=== PATIENT | female | born 1985 | race Caucasian/White ===

== ENCOUNTER 2022-07-19 03:34 | Emergency (ER) | payer BC, MEDICAID, SELFPAY ==
[2022-07-19 03:40] VITALS: BP 145/88; PULSE 101; RESP 18; TEMP 36.9; O2SAT 100; BMI 33.3
[2022-07-19 03:52] VITALS: BP 145/88; PULSE 96; RESP 17; O2SAT 100
--- NOTE | 2022-07-19 03:52 | XRR_ITS ---
PROCEDURE INFORMATION: Exam: XR Chest Exam date and time: 07/19/2022 4:10 AM Age: 36 years old Clinical indication: Pain; Other: Epigastric; Additional info: Epigastric pain TECHNIQUE: Imaging protocol: Radiologic exam of the chest. Views: 1 view. COMPARISON: No relevant prior studies available. FINDINGS: Lungs: Lungs are clear. Pleural spaces: There is no pleural effusion or pneumothorax. Heart/Mediastinum: Cardiomediastinal contours are unremarkable. Bones/joints: There is a healed fracture of the right clavicle. XR/XR chest 1V portable [id number] IMPRESSION: No acute findings.
--- NOTE | 2022-07-19 03:52 | ECG_ITS ---
[facility] Test Date: 2022-07-19 Pat Name: Yakelin Felix Department: Room: Gender: Female Senior Electrical Engineer: : 1985 Requested By: Tommie Feng Order Number: [id number] Ari MD: Juan Ray M.D. Measurements Intervals [place] Rate: 90 P: 25 SC: 138 QRS: 15 QRSD: 80 T: 43 QT: 353 QTc: 433 Interpretive Statements SINUS RHYTHM LOW QRS VOLTAGE IN PRECORDIAL LEADS [QRS DEFLECTION < 1.0 mV IN CHEST LEADS] No previous ECG available for comparison Electronically Signed On 07-19-2022 7:17:37 CDT by Juan Ray M.D. [id number]
[2022-07-19] MEDS: lidocaine 2% viscous 15 ML, aluminum-mag hydrox-simethicon 30 ML, sucralfate oral liq 1 GM PO (04:05)
--- NOTE | 2022-07-19 04:07 | USR_ITS ---
PROCEDURE INFORMATION: Exam: US Abdomen, Limited; Right Upper Quadrant Exam date and time: 07/19/2022 4:16 AM Age: 36 years old Clinical indication: Abdominal pain; Epigastric; Additional info: Epigastric, ruq pain TECHNIQUE: Imaging protocol: Real time ultrasound of the abdomen with image documentation. Limited exam focused on the right upper quadrant. COMPARISON: No relevant prior studies available. FINDINGS: Liver: The liver is unremarkable. Gallbladder: The gallbladder is distended. The wall is mildly diffusely thickened. There is no pericholecystic fluid. No gallstones are visible. Sonographic Horton sign is negative. Biliary ducts: The common bile duct is nondilated measuring 6 mm. Pancreas: The visible portion of the pancreas is unremarkable. The pancreas is largely obscured by overlying bowel gas. Right kidney: The right kidney is unremarkable. Portal venous: The main portal vein is patent. US/US gall bladder [id number] IMPRESSION: Equivocal findings for acute cholecystitis including gallbladder distension and wall thickening. There are no visible gallstones or sludge. Sonographic Horton sign is negative.
[2022-07-19 04:09] LABS: Basophils # 0.1 10^3/uL (0.0-0.1); Basophils % 0.7 %; Eosinophils % 0.3 %; Hematocrit 43.4 % (37.0-47.0); Lymphocytes # 4.2 10^3/uL (0.8-4.8); Lymphocytes % 28.1 %; Mean Corpuscular HGB Conc 32.3 g/dL (30.0-36.0); Mean Corpuscular Hemoglobin 26.1 pg (28.0-34.0); Mean Corpuscular Volume 80.8 fl (81-99); Mean Platelet Volume 11.9 fL (7.4-10.4); Monocytes % 6.7 %; Neutrophils # 9.61 10^3/uL (1.8-7.7); Nucleated Red Blood Cells % 0 %; Platelet Count 420 10^3/cmm (130-400); Red Blood Count 5.37 10^6/uL (4.1-5.3); Red Cell Distribution Width 16.3 % (12.1-15.1)
[2022-07-19] MEDS: ondansetron 2 mg/ML SDV 2 mL 4 MG IVP (04:11)
[2022-07-19] MEDS: morphine 4 mg/mL SDV 1 mL IVP (04:11)
[2022-07-19 04:22] LABS: D Dimer 0.71 ug/mIFEU (0-0.59)
[2022-07-19 04:26] LABS: Troponin(5th) Baseline 6 ng/L (0-10)
[2022-07-19 04:34] LABS: Alanine Aminotransferase 20 U/L (0-33); Albumin Level 4.3 g/dL (3.5-5.2); Alkaline Phosphatase 65 U/L (35-105); Anion Gap 19.4 (5-19); Aspartate Amino Transferase 34 U/L (0-32); Blood Urea Nitrogen 13 mg/dL (6-20); Calcium 9.8 mg/dL (8.5-10.5); Carbon Dioxide 22 mmol/L (22-29); Chloride 101 mmol/L (98-107); Glomerular Filtration Rate 80.3 mL/min (90-130); Glucose 87 mg/dL (65-115); Lipase 79 U/L (13-60); NT Pro B Type Natriuretic Pept 62 pg/mL (0-125); Osmolality Calculated 287 mOsm/kg (285-295); Potassium 3.4 mmol/L (3.5-5.1); Sodium 139 mmol/L (136-145); Total Bilirubin 0.3 mg/dL (0.15-1.2); Total Protein 7.3 g/dL (6.6-8.7)
[2022-07-19] MEDS: ketorolac 30 mg/mL INJ 15 MG IVP (04:50)
--- NOTE | 2022-07-19 04:58 | CTR_ITS ---
PROCEDURE INFORMATION: Exam: CTA Chest With Contrast Exam date and time: 07/19/2022 5:24 AM Age: 36 years old Clinical indication: Abdominal pain; Epigastric; Sternal or substernal pain; Prior surgery; Surgery type: Tubal; Additional info: Epigastric pain, elevated d dimer TECHNIQUE: Imaging protocol: Computed tomographic angiography of the chest with contrast. 3D rendering (Not supervised by radiologist): MIP and/or 3D reconstructed images were created by the technologist. Radiation optimization: All CT scans at this facility use at least one of these dose optimization techniques: automated exposure control; mA and/or kV adjustment per patient size (includes targeted exams where dose is matched to clinical indication); or iterative reconstruction. Contrast material: OMNI 350; Contrast volume: 100 ml; Contrast route: INTRAVENOUS (IV); REPORTING DATA: Count of CT and Cardiac NM exams in prior 12 months: This patient has received 0 known CTs and 0 known cardiac nuclear medicine studies in the 12 months prior to the current study. COMPARISON: CR (CHEST, ) 07/19/2022 4:10 AM RADIATION DOSE METRICS: Total DLP (mGy-cm): 1244.75 FINDINGS: Pulmonary arteries: The pulmonary arteries are adequately opacified for evaluation to the subsegmental level. There is no filling defect to suggest embolism. Aorta: The thoracic aorta is normal. There is no aneurysm or dissection. Lungs: Lungs are clear. Pleural spaces: There is no pleural effusion or pneumothorax. Heart: Heart size is normal. There is no pericardial effusion. Lymph nodes: There is no mediastinal or hilar lymphadenopathy. Bones/joints: Bones are unremarkable. Soft tissues: The extrathoracic soft tissues are unremarkable. PROCEDURE INFORMATION: Exam: CT Abdomen And Pelvis With Contrast Exam date and time: 07/19/2022 5:24 AM Age: 36 years old Clinical indication: Abdominal pain; Epigastric; Sternal or substernal pain; Prior surgery; Surgery type: Tubal; Additional info: Epigastric pain, elevated d dimer TECHNIQUE: Imaging protocol: Computed tomography of the abdomen and pelvis with contrast. Radiation optimization: All CT scans at this facility use at least one of these dose optimization techniques: automated exposure control; mA and/or kV adjustment per patient size (includes targeted exams where dose is matched to clinical indication); or iterative reconstruction. Contrast material: OMNI 350; Contrast volume: 100 ml; Contrast route: INTRAVENOUS (IV); REPORTING DATA: Count of CT and Cardiac NM exams in prior 12 months: This patient has received 0 known CTs and 0 known cardiac nuclear medicine studies in the 12 months prior to the current study. COMPARISON: US gall bladder [id number] 07/19/2022 4:16 AM RADIATION DOSE METRICS: Total DLP (mGy-cm): 1244.75 FINDINGS: Liver: The liver is normal. Gallbladder and bile ducts: The gallbladder is distended. There is pericholecystic edema. No calcified stones are seen. There is no intrahepatic or extrahepatic bile duct dilation. Pancreas: The pancreas is unremarkable. Spleen: The spleen is unremarkable. Adrenal glands: The adrenal glands are unremarkable. Kidneys and ureters: The right kidney and ureter are unremarkable. There is multifocal cortical scarring at the left upper pole. There is a nonobstructive 2 mm stone in the left kidney. No hydronephrosis or ureteral dilation. There is a circumscribed 6 mm hypodense lesion in the left kidney which is too small to characterize but likely benign. Stomach and bowel: The stomach is unremarkable. The jejunum is mildly thickened but there is no perienteric edema. This finding likely represents physiologic muscular contraction. There is no small bowel dilation. The colon is diffusely decompressed. No sign of colitis. Appendix: The appendix is normal. Intraperitoneal space: There is no free air or significant intraperitoneal free fluid. Vasculature: There is mild aortic atherosclerotic disease. The portal, splenic and superior mesenteric veins are patent. Lymph nodes: There is no lymphadenopathy in the retroperitoneum, mesentery, pelvis or inguinal regions. Urinary bladder: The urinary bladder is unremarkable. Reproductive: The uterus is unremarkable. There is no adnexal mass or large cyst. Bones/joints: There is mild degenerative disease in the lumbar spine. Central disc protrusion at L4-L5 produces severe spinal stenosis. Soft tissues: The abdominal wall is intact. CT/CT angio chest w abd pel w con IMPRESSION: No pulmonary embolism. IMPRESSION: 1. Suggestive findings of acute cholecystitis. There is gallbladder distension and pericholecystic edema without visible stones. 2. L4-L5 disc protrusion with severe spinal stenosis. 3. Cortical scarring and nonobstructive stone in the left kidney.
--- NOTE | 2022-07-19 04:59 | ED_ITS ---
HPI - Chest Pain General: Chief Complaint: Chest Pain Stated Complaint: CP Time Seen by Provider: 07/19/22 03:51 Source: patient History of Present Illness: 36-year-old female with epigastric/right upper quadrant pain that radiates into her back. It woke her up around 1 AM. She has vomited twice. She felt mildly better after vomiting, but still is in si gnificant pain. She has had episodes like this before but this has been the most severe. She had an EGD in [facility] last week showing a hiatal hernia and some incomplete gastric emptying. No imaging has been done of the belly. She says that her chest x-ray was normal the last time it was taken. MD complaint: other Pertinent past history: other Onset (ago): hour(s) Timing of current episode: constant Prior episodes: Yes Onset: during rest and awoke with symptoms Pain location: epigastric Pain radiation: back Severity: moderate Associated symptoms: Reports abdominal pain, diaphoresis, dyspnea, nausea and vomiting; Deny fever(s) Treatment prior to arrival: none Review of Systems Const: Reports: diaphoresis; Denies: fever(s) Card: Reports: chest pain Resp: Reports: dyspnea GI: Reports: abdominal pain, nausea and vomiting : Denies: flank pain Musc: Reports: back pain Skin/Breast: Denies: rash Neuro: Denies: headache(s) Physical Exam 2 Const: COMMON NORMALS: no acute distress GENERAL APPEARANCE: in distress and ill appearing (mildly) NUTRITIONAL APPEARANCE: overweight HENMT: COMMON NORMALS: normocephalic, atraumatic and Normal external nose present HEAD & SCALP: normocephalic and atraumatic FACE & SINUS: normal facial exam and face symmetric NOSE: Normal external nose present Eye: COMMON NORMALS: Equal, round and reactive pupils present and EOMs intact bilaterally PUPIL: Yes Equal, round and reactive pupils present Neck/C-Spine: GENERAL: Yes trachea midline Chest: CHEST: Yes Symmetrical chest wall rise Resp: COMMON NORMALS: normal respiratory effort, No retractions, No use of accessory muscles and clear to auscultation bilaterally AUSCULTATION: clear to auscultation bilaterally Cardio: COMMON NORMALS: regular rate and regular rhythm RATE: regular rate RHYTHM: regular rhythm GI: COMMON NORMALS: Normal to inspection, nondistended, normoactive bowel sounds present PALPATION: Yes Tenderness to palpation present (GI) (Ep igastric) Details: RUQ Extremity: COMMON NORMALS: no pedal edema Neuro: ANCELMO COMA SCALE: document GCS findings Ancelmo coma scale eye opening: Spontaneous Ancelmo coma scale verbal response: Orientated Ancelmo coma scale motor response: Obey commands Ancelmo coma scale total score: 15 SENSORY EXAM: Yes extremities (intact) Psych: COMMON NORMALS: speech normal SPEECH: Yes normal speech Skin: COMMON NORMALS: no rashes or lesions noted GENERAL SKIN EXAM: no rashes or lesions noted Course Vital Signs: Vital signs: Vital Signs Temperature 98.5 F 07/19/22 03:40 Pulse Rate 80 07/19/22 06:44 Respiratory Rate 16 07/19/22 06:44 Blood Pressure 145/88 07/19/22 03:52 Pulse Oximetry 98 07/19/22 06:44 Oxygen Delivery Me thod 07/19/22 03:52 MDM - Chest Pain Medical Decision Making Pain was not well relieved with GI cocktail. Morphine toradol and Zofran relieved her pain significantly. white blood cell count is 15. she is afebrile. potassium is 3.4. BMP otherwise not remarkable. liver enzymes not remarkable. her EKG shows a sinus rhythm with normal axis and intervals and no acute ST change. baseline troponin is 6. two hour delta is zero. lipase minimally elevated at 79. D dimer was elevated at 0.71. gallbladder ultrasound shows minimal wall thickening with no stones or sludge. CTA of the chest is performed with abdominal pelvic follow through showing similar gallbladder wall findings, no pulmonary embolism. she will follow up with surgery. We will ask case management to arrange this. she will return for worsening symptoms. Lab Data 07/19/22 03:48 07/19/22 03:48 Radiology Impressions Chest X-Ray 07/19/22 03:52 IMPRESSION: No acute findings. Gallbladder Ultrasound 07/19/22 04:07 IMPRESSION: Equivocal findings for acute cholecystitis including gallbladder distension and wall thickening. There are no visible gallstones or sludge. Sonographic Horton sign is negative. Chest/Abdomen/Pelvis CT 07/19/22 04:58 IMPRESSION: No pulmonary embolism. IMPRESSION: 1. Suggestive findings of acute cholecystitis. There is gallbladder distension and pericholecystic edema without visible stones. 2. L4-L5 disc protrusion with severe spinal stenosis. 3. Cortical scarring and nonobstructive stone in the left kidney. Laboratory Results WBC 15.0 10^3/uL (4.0-10.0) H 07/19/22 03:48 RBC 5.37 10^6/uL (4.1-5.3) H 07/19/22 03:48 Hgb 14.0 g/dL (11.5-15.3) 07/19/22 03:48 Hct 43.4 % (37.0-47.0) 07/19/22 03:48 MCV 80.8 fl (81-99) L 07/19/22 03:48 MCH 26.1 pg (28.0-34.0) L 07/19/22 03:48 MCHC 32.3 g/dL (30.0-36.0) 07/19/22 03:48 RDW 16.3 % (12.1-15.1) H 07/19/22 03:48 Plt Count 420 10^3/cmm (130-400) H 07/19/22 03:48 MPV 11.9 fL (7.4-10.4) H 07/19/22 03:48 Neut % (Auto) 64.0 % 07/19/22 03:48 Lymph % (Auto) 28.1 % 07/19/22 03:48 [place] % (Auto) 6.7 % 07/19/22 03:48 Eos % (Auto) 0.3 % 07/19/22 03:48 Baso % (Auto) 0.7 % 07/19/22 03:48 Neut # (Auto) 9.61 10^3/uL (1.8-7.7) H 07/19/22 03:48 Lymph # (Auto) 4.2 10^3/uL (0.8-4.8) 07/19/22 03:48 [place] # (Auto) 1.0 10^3/uL (0.2-0.9) H 07/19/22 03:48 Eos # (Auto) 0.0 10^3/uL (0.0-0.8) 07/19/22 03:48 Baso # (Auto) 0.1 10^3/uL (0.0-0.1) 07/19/22 03:48 Nucleated RBC % (auto) 0 % 07/19/22 03:48 Nucleated RBCs # 0.0 /100WBC 07/19/22 03:48 D-Dimer 0.71 ug/mIFEU (0-0.59) H 07/19/22 03:48 Sodium 139 mmol/L (136-145) 07/19/22 03:48 Potassium 3.4 mmol/L (3.5-5.1) L 07/19/22 03:48 Chloride 101 mmol/L (98-107) 07/19/22 03:48 Carbon Dioxide 22 mmol/L (22-29) 07/19/22 03:48 Anion Gap 19.4 (5-19) H 07/19/22 03:48 BUN 13 mg/dL (6-20) 07/19/22 03:48 Creatinine 0.8 mg/dL (0.5-0.9) 07/19/22 03:48 GFR Calculation 80.3 mL/min (90-130) L 07/19/22 03:48 Glucose 87 mg/dL (65-115) 07/19/22 03:48 Calculated Osmolality 287 mOsm/kg (285-295) 07/19/22 03:48 Calcium 9.8 mg/dL (8.5-10.5) 07/19/22 03:48 Total Bilirubin 0.3 mg/dL (0.15-1.2) 07/19/22 03:48 AST 34 U/L (0-32) H 07/19/22 03:48 ALT 20 U/L (0-33) 07/19/22 03:48 Alkaline Phosphatase 65 U/L (35-105) 07/19/22 03:48 Troponin T Baseline 6 ng/L (0-10) 07/19/22 03:48 Troponin T 120 Minute 6.00 ng/L (0-10) 07/19/22 05:45 Delta Troponin T 0 ABS# (0-10) 07/19/22 05:45 NT-Pro-B Natriuret Pep 62 pg/mL (0-125) 07/19/22 03:48 Total Protein 7.3 g/dL (6.6-8.7) 07/19/22 03:48 Albumin 4.3 g/dL (3.5-5.2) 07/19/22 03:48 Globulin 3.0 g/dL (1.3-4.6) 07/19/22 03:48 Lipase 79 U/L (13-60) H 07/19/22 03:48 Discharge Plan Discharge Patient Disposition: Home Clinical Impression: Chest pain, Biliary colic Condition: Stable Prescriptions: New hydrocodone-acetaminophen 5-325 mg tablet 1 tab PO Q8H PRN (Reason: pain) Qty: 7 0RF ondansetron 4 mg film 4 mg PO DAILY PRN (Reason: nausea and vomiting) Qty: 10 0RF Discharge Orders: Discharge ED (Routine); Ordered 07/19/22 Ordered By: Tommie Sheikh Referrals: Warner Reyes DO [Physician] - 4-7 days Kelby Barbosa FNP [Primary Care Provider] - Jaswant Gill [Family Provider] - Patient Instructions: Biliary Colic (ED), Abdominal Pain (ED), Opioid Safety, Pain Management Activity Restrictions/Additional Instructions: Return for fever greater than 100, vomiting liquids or medications, worsening pain despite treatment, other concerning symptoms. Follow a clear liquid diet for the next 24 hours, then gradually increase as tolerated. Our outpatient case manager will make you a follow-up appointment with surgery. You should get a call at the beginning of the week. Coding Level of Care Code ED [employer] Designer for Adilson Miguel
[2022-07-19] MEDS: iohexol 350 mg/mL 500 mL Btl (per mL) IV (05:30)
[2022-07-19 06:16] LABS: Troponin 5 2HR Delta 0 ABS# (0-10)
[2022-07-19 06:44] VITALS: PULSE 80; RESP 16; O2SAT 98
== END 2022-07-19 06:41 | disposition home or self-care (01) ==
PROVIDERS: Emergency Provider Emergency Medicine; PCP Nurse Practitioner
DX: R07.9 Chest pain, unspecified (principal); K81.0 Acute cholecystitis
CPT/HCPCS: 71045; 71275; 74177; 76705; 80053; 83690; 83880; 84484; 85025; 85378; 93005; 96361; 96374; 96375; 99285; J1885; J2270; J2405; Q9967

== ENCOUNTER → 2025-04-04 10:00 | Outpatient (BNVA) | payer BC, SELFPAY | PROVIDERS: PCP Nurse Practitioner Family; Visit Provider Nurse Practitioner Family | DX: Z13.6 Encounter for screening for cardiovascular disorders (principal); F32.A Depression, unspecified | CPT/HCPCS: 80053; 80061; 85025 ==